=== PATIENT | male | born 1980 | race Caucasian/White ===

== ENCOUNTER 2017-03-07 03:55 | Emergency (ER) | payer MEDICAID ==
--- NOTE | 2017-03-07 04:03 | ED.REPORT ---
HPI-General Illness Date of Service Mar 07, 2017 ED Provider: Nursing Notes Stated Complaint: CO2 Chief Complaint: General Complaint Allergies: Coded Allergies: Aminoglycosides (Verified Allergy, Severe, RASH, 06/19/09) Bacitracin (Verified Allergy, Severe, RASH, 06/19/09) Neomycin (Verified Allergy, Severe, RASH, 06/19/09) Polymyxin B (Verified Allergy, Severe, RASH, 06/19/09) Florin Guardado MD Mar 07, 2017 04:03
== END 2017-03-07 04:06 | disposition left against medical advice (07) ==
LOC: EDBD 03:55 → SED 03:55
DX: Z77.098 Contact with and (suspected) exposure to other hazardous, chiefly nonmedicinal, chemicals (principal); Z53.21 Procedure and treatment not carried out due to patient leaving prior to being seen by health care provider